=== PATIENT | female | born 1980 | race Caucasian/White ===

== ENCOUNTER 2024-11-21 07:27 | Emergency (ER) | payer OTHER ==
--- NOTE | 2024-11-21 07:41 | ED ---
General Adult HPI - General Chief complaint: Recheck/Abnormal Lab/Rx Stated complaint: TB+ test Time Seen by Provider: 11/21/24 07:40 Source: patient, EMS, RN notes reviewed Mode of arrival: EMS Limitations: no limitations - History of Present Illness Initial comments: 44-year-old female with no reported medical conditions presenting to the emergency department via EMS from [facility] with concerns for positive TB test. Patient states that she is at [facility] for cocaine abuse and they tested all of their patients for TB. She has a history of having a reaction to the skin PPD test therefore she underwent a blood test for TB that resulted positive. Patient states that they have sent her to the emergency department for a chest x-ray and further evaluation. Patient states that overall she has been feeling well and denies symptoms of sputum production, fevers, chills, night sweats, unintended weight loss, chest pain or difficulty breathing. She denies history of TB or known TB exposure. Denies history of HIV/AIDS, incarceration, or living in homeless penitentiary(s). - Related Data Allergies Allergy/AdvReac Type Severity Reaction Status Date / Time No Known Allergies Allergy Verified 11/21/24 07:35 Review of Systems ROS Statement: Those systems with pertinent positive or pertinent negative responses have been documented in the HPI. ROS Other: All systems not noted in ROS Statement are negative. Past Medical History Past Medical History: No Reported History History of Any Multi-Drug Resistant Organisms: None Reported Past Surgical History: No Surgical Hx Reported Smoking Status: Current every day smoker Past Alcohol Use History: None Reported Past Drug Use History: Cocaine General Exam Limitations: no limitations ENT exam: Present: normal exam, mucous membranes moist Neck exam: Present: normal inspection. Absent: tenderness, meningismus, lymphadenopathy Respiratory exam: Present: normal lung sounds bilaterally. Absent: respiratory distress, wheezes, rales, rhonchi, stridor Cardiovascular Exam: Present: regular rate, normal rhythm, normal heart sounds. Absent: systolic murmur, diastolic murmur, rubs, gallop, clicks GI/Abdominal exam: Present: soft, normal bowel sounds. Absent: distended, tenderness, guarding, rebound, rigid Extremities exam: Present: normal inspection, full ROM, normal capillary refill. Absent: tenderness, pedal edema, joint swelling, calf tenderness Back exam: Present: normal inspection Course Vital Signs 11/21/24 11/21/24 11/21/24 07:33 07:37 08:19 Temperature 98.5 F Pulse Rate 83 76 Respiratory 16 18 16 Rate Blood Pressure 142/89 124/95 O2 Sat by Pulse 97 97 Oximetry 11/21/24 10:23 Temperature 98.2 F Pulse Rate 68 Respiratory 18 Rate Blood Pressure 122/91 O2 Sat by Pulse 98 Oximetry Medical Decision Making - Medical Decision Making Was pt. sent in by a medical professional or institution (, [facility], NANOTECHNICIAN, urgent care, hospital, or detention...) When possible be specific @ -Patient was sent from [facility] with concerns for positive blood test for TB. Did you speak to anyone other than the patient for history (EMS, parent, family, police, friend...)? What history was obtained from this source @ -No Did you review nursing and triage notes (agree or disagree)? Why? @ -I reviewed and agree with nursing and triage notes Were old charts reviewed (outside hosp., previous admission, EMS record, old EKG, old radiological studies, urgent care reports/EKG's, detention records)? Report findings @ -No old charts were reviewed Differential Diagnosis (chest pain, altered mental status, abdominal pain women, abdominal pain men, vaginal bleeding, weakness, fever, dyspnea, syncope, headac he, dizziness, GI bleed, back pain, seizure, CVA, palpatations, mental health, musculoskeletal)? @ -Latent TB, active TB, pneumonia, this list is not all inclusive EKG interpreted by me (3pts min.). @ -None X-rays interpreted by me (1pt min.). @ -Chest x-ray no acute cardiopulmonary process CT interpreted by me (1pt min.). @ -None done U/S interpreted by me (1pt. min.). @ -None done What testing was considered but not performed or refused? (CT, X-rays, U/S, labs)? Why? @ -None What meds were considered but not given or refused? Why? @ -None Did you discuss the management of the patient with other professionals (professionals i.e. [facility]ICHARD Petersen, NANOTECHNICIAN, lab, RT, psych nurse, social science research assistant, triage register nurse, teacher, asset protection officer, case management rn)? Give summary @ -I spoke with on-call infectious disease physician, Dr. Barnett, who stated that patient most likely has latent TB and at this time emergent treatment is not necessary. She is okay to continue her inpatient rehabilitation and recommend close follow-up with infectious disease or her primary care provider after she has completed her rehab treatment. Was smoking cessation discussed for >3mins.? @ -No Was critical care preformed (if so, how long)? @ -No Were there social determinants of health that impacted care today? How? (Homelessness, low income, unemployed, alcoholism, drug addiction, transportation, low edu. Level, literacy, decrease access to med. care, assisted, rehab)? @ -No Was there de-escalation of care discussed even if they declined (Discuss DNR or withdrawal of care, Hospice)? DNR status @ -No What co-morbidities impacted this encounter? (DM, HTN, Smoking, COPD, CAD, Cancer, CVA, ARF, Chemo, Hep., AIDS, mental health diagnosis, sleep apnea, morbid obesity)? @ -None Was patient admitted / discharged? Hospital course, mention meds given and route, prescriptions, significant lab abnormalities, going to OR and other pertinent info. @ -Discharge. 44-year-old female presenting via EMS from [facility] for positive blood TB. Overall patient is well-appearing and her vitals are stable. Chest x-ray is unremarkable. Laboratory testing is unremarkable. Infectious disease recommends that patient follow-up after rehab for treatment of latent TB. Patient is stable for discharge. Case discussed with my attending Dr. Butler. Undiagnosed new problem with uncertain prognosis? @ -No Drug Therapy requiring intensive monitoring for toxicity (Heparin, Nitro, Insulin, Cardizem)? @ -No Were any procedures done? @ -No Diagnosis/symptom? @ -latent TB Acute, or Chronic, or Acute on Chronic? @ -acute Uncomplicated (without systemic symptoms) or Complicated (systemic symptoms)? @ -uncomplicated Side effects of treatment? @ -No Exacerbation, Progression, or Severe Exacerbation? @ -No Poses a threat to life or bodily function? How? (Chest pain, USA, CA, pneumonia, PE, COPD, DKA, ARF, appy, cholecystitis, CVA, Diverticulitis, Homicidal, Suicidal, threat to staff... and all critical care pts) @ -No - Lab Data Result diagrams: 11/21/24 07:57 11/21/24 07:57 Lab Results 11/21/24 11/21/24 Range/Units 07:57 07:57 WBC 7.16 (4.50-10.00) 10*3/uL RBC 3.77 L (4.10-5.20) 10*6/uL Hgb 11.9 L (12.0-15.0) g/dL Hct 35.3 L (37.2-46.3) % MCV 93.6 (80.0-97.0) fL MCH 31.6 (27.0-32.0) pg MCHC 33.7 (32.0-37.0) g/dL Plt Count 239 (140-440) 10*3/uL MPV 10.2 (9.5-12.2) fL Immature Gran % (Auto) 0.7 % Neutrophils % 61.1 % Lymphocytes % 27.7 % Monocytes % 6.4 % Eosinophils % 3.5 % Basophils % 0.6 % Immature Gran # 0.05 H (0.00-0.04) 10*3/uL Neutrophils # 4.38 (1.80-7.70) 10*3/uL Lymphocytes # 1.98 (0.90-5.00) 10*3/uL Monocytes # 0.46 (0.20-1.00) 10*3/uL Eosinophils # 0.25 (0.04-0.35) 10*3/uL Basophils # 0.04 (0.00-0.10) 10*3/uL Sodium 139 (137-145) mmol/L Potassium 4.3 (3.5-5.1) mmol/L Chloride 108 H (98-107) mmol/L Carbon Dioxide 21 L (22-30) mmol/L Anion Gap 10 mmol/L BUN 20 H (7-17) mg/dL Creatinine 0.60 (0.52-1.04) mg/dL Est GFR (CKD-EPI)AfAm >90 (>60 ml/min/1.73 sqM) Est GFR (CKD-EPI)NonAf >90 (>60 ml/min/1.73 sqM) Glucose 99 (74-99) mg/dL Calcium 9.2 (8.4-10.2) mg/dL Total Bilirubin 0.4 (0.2-1.3) mg/dL AST 26 (14-36) U/L ALT 28 (4-34) U/L Alkaline Phosphatase 76 (38-126) U/L Total Protein 6.5 (6.3-8.2) g/dL Albumin 4.0 (3.5-5.0) g/dL Disposition Clinical Impression: Latent tuberculosis by blood test Disposition: HOME SELF-CARE Condition: Good Instructions (If sedation given, give patient instructions): Tuberculosis (DC) Additional Instructions: Please return to the Emergency Department if symptoms worsen or any other concerns. After you have completed your course of rehabilitation at [facility] please follow-up with your primary care provider for further evaluation of latent TB. Is patient prescribed a controlled substance at d/c from ED?: No Referrals: None,Stated [REFERRING] - 1-2 days Time of Disposition: 09:27
[2024-11-21 08:05] LABS: Basophils # (A) 0.04 10*3/uL (0.00-0.10); Basophils % (A) 0.6 %; Eosinophils # (A) 0.25 10*3/uL (0.04-0.35); Eosinophils % (A) 3.5 %; HCT 35.3 % (37.2-46.3); HGB 11.9 g/dL (12.0-15.0); Lymphocytes # (A) 1.98 10*3/uL (0.90-5.00); Lymphocytes % (A) 27.7 %; MCH 31.6 pg (27.0-32.0); MCHC 33.7 g/dL (32.0-37.0); MCV 93.6 fL (80.0-97.0); Monocytes # (A) 0.46 10*3/uL (0.20-1.00); Monocytes % (A) 6.4 %; Neutrophils # (A) 4.38 10*3/uL (1.80-7.70); Neutrophils % (A) 61.1 %; Platelet Count 239 10*3/uL (140-440); RBC 3.77 10*6/uL (4.10-5.20); RDW 12.8 % (11.5-14.5); WBC 7.16 10*3/uL (4.50-10.00)
[2024-11-21 08:20] LABS: ALT 28 U/L (4-34); AST 26 U/L (14-36); African American GFR (CKD) >90 (>60 ml/min/1.73 sqM); Albumin 4.0 g/dL (3.5-5.0); Alkaline Phosphatase 76 U/L (38-126); Anion Gap 10 mmol/L; Blood Urea Nitrogen 20 mg/dL (7-17); Calcium 9.2 mg/dL (8.4-10.2); Carbon Dioxide 21 mmol/L (22-30); Chloride 108 mmol/L (98-107); Glucose 99 mg/dL (74-99); Non-African American GFR(CKD) >90 (>60 ml/min/1.73 sqM); Potassium 4.3 mmol/L (3.5-5.1); Sodium 139 mmol/L (137-145); Total Protein 6.5 g/dL (6.3-8.2)
--- NOTE | 2024-11-21 08:47 | XR ---
EXAMINATION TYPE: XR chest 2V DATE OF EXAM: 11/21/2024 8:44 AM COMPARISON: None. CLINICAL INDICATION: Female, 44 years old with history of + TB test, Chest pain TECHNIQUE: XR chest 2V views of the chest are obtained. FINDINGS: There is no focal air space opacity. No evidence for pneumothorax. No pleural effusion. The cardiac silhouette size is within normal limits. The osseous structures are grossly intact. IMPRESSION: 1. No acute cardiopulmonary process. [facility], , 11/21/2024 8:45 AM
[2024-11-21 10:24] VITALS: BP 122/91; PULSE 68; RESP 18; TEMP 98.2
== END 2024-11-21 10:24 | disposition home or self-care (01) ==
LOC: EC 07:27
DX: F17.200 Nicotine dependence, unspecified, uncomplicated (principal); Z22.7 Latent tuberculosis
CPT/HCPCS: 36415; 71046; 80053; 85025; 99284